=== PATIENT | female | born 1995 | race Two or more races ===

== ENCOUNTER 2021-01-03 20:32 | Observation (INO) | payer OTHER ==
[2021-01-03] MEDS ORDERED: PREN-96 PO (22:12)
== END 2021-01-03 22:24 | disposition home or self-care (01) ==
LOC: LDRP 20:32
PROVIDERS: ADMIT Obstetrics & Gynecology; ATTEND Obstetrics & Gynecology
DX: O26.852 Spotting complicating pregnancy, second trimester (principal); O99.322 Drug use complicating pregnancy, second trimester; F12.90 Cannabis use, unspecified, uncomplicated; O99.312 Alcohol use complicating pregnancy, second trimester; Z3A.20 20 weeks gestation of pregnancy; Z87.891 Personal history of nicotine dependence
CPT/HCPCS: 59025; 76805; 81002; 94760; G0378; G0379

== ENCOUNTER 2021-03-02 07:16 | Emergency (ER) | payer MEDICAID, OTHER ==
[~2021-03-02] VITALS: Ht 162.6 cm; Wt 75.3 kg
[~2021-03-02 07:16] MED LIST: PREN-96 PO
[2021-03-02] MEDS ORDERED: PENICILLIN G BENZ 1200000 UNITS/2 ML SYRG IM ONE (08:00)
[2021-03-02 08:10] VITALS: BP 115/75
== END 2021-03-02 08:32 | disposition home or self-care (01) ==
LOC: ER 07:16
DX: O98.113 Syphilis complicating pregnancy, third trimester (principal); Z3A.28 28 weeks gestation of pregnancy
CPT/HCPCS: 96372; 99283; J0561

== ENCOUNTER 2021-03-09 10:57 | Emergency (ER) | payer MEDICAID ==
[~2021-03-09] VITALS: Ht 162.6 cm; Wt 75.3 kg
[2021-03-09] MEDS ORDERED: PENICILLIN G BENZ 1200000 UNITS/2 ML SYRG IM ONE ×2 (13:30→13:45)
[2021-03-09 13:35] VITALS: BP 109/75
== END 2021-03-09 14:40 | disposition home or self-care (01) ==
LOC: ER 10:57
DX: O98.113 Syphilis complicating pregnancy, third trimester (principal); Z3A.29 29 weeks gestation of pregnancy; Z20.2 Contact with and (suspected) exposure to infections with a predominantly sexual mode of transmission
CPT/HCPCS: 96372; 99283; J0561